=== PATIENT | female | born 1975 | race African-American/Black ===

== ENCOUNTER → 2018-01-12 | Outpatient (CLI) | payer OTHER ==
[~2018-01-12] MED LIST: LISINOPRIL-HCT1 EAC2 PO; MOBIC7.5 MG PO
== END ==
LOC: RAD 08:58
DX: M47.816 Spondylosis without myelopathy or radiculopathy, lumbar region (principal); I10 Essential (primary) hypertension

== ENCOUNTER → 2018-01-27 | Outpatient (CLI) | payer OTHER | LOC: MRI 07:11 | DX: M51.36 Other intervertebral disc degeneration, lumbar region (principal); M12.88 Other specific arthropathies, not elsewhere classified, other specified site; M51.26 Other intervertebral disc displacement, lumbar region; G89.29 Other chronic pain; R20.0 Anesthesia of skin; R53.1 Weakness ==

== ENCOUNTER → 2018-04-12 | Outpatient (CLI) | payer OTHER ==
[~2018-04-12] MED LIST changes: +FLURANDRENOLIDE TOP; +IBUPROFEN 800800 M1 PO; +MEDROLDOSEPACK PO; +NORVASC5 MG PO; +TAZORAC30 G2 TOP; +VISTARIL 25 MG25 M1 PO
== END ==
LOC: RAD 10:07
DX: Z12.31 Encounter for screening mammogram for malignant neoplasm of breast (principal)

== ENCOUNTER → 2020-12-07 | Outpatient (CLI) | payer OTHER | LOC: ULTRA 15:58 | PROVIDERS: ATTEND Family Medicine | DX: N83.202 Unspecified ovarian cyst, left side (principal); R10.2 Pelvic and perineal pain ==